=== PATIENT | female | born 1995 | race African-American/Black ===

== ENCOUNTER 2017-03-03 16:25 | Emergency (ER) | payer OTHER ==
[~2017-03-03] VITALS: Ht 152.4 cm; Wt 65.2 kg
[2017-03-03 16:32] VITALS: TEMP 36.7; Ht 152.4 cm; Wt 65.2 kg
[2017-03-03 18:38] LABS: BASO % 0.3 %; BASO ABS # 0.03 K/uL (0-0.2); EOS % 2.1 %; HEMATOCRIT 31.4 % (37-47); IG% 0.2 %; LYMPH % 19.3 %; LYMPH ABS # 1.78 K/uL (1.2-3.4); MEAN CELL VOLUME 74.8 fL (80-100); MEAN CORPUSCULAR HEMOGLOBIN 24.5 pg (25-34); MEAN CORPUSCULAR HGB CONC 32.8 g/dl (32-36); MEAN PLATELET VOLUME 10.4 fL (7.4-10.4); MONO % 10.2 %; NEUT % 67.9 %; PLATELET COUNT 303 K/uL (130-400); WHITE BLOOD COUNT 9.24 K/uL (4.8-10.8)
[2017-03-03 18:55] LABS: URINE APPEARANCE CLEAR (CLEAR); URINE BILIRUBIN NEG (NEG); URINE COLOR YELLOW; URINE EPITHELIAL CELL AUTO >30 /lpf (0-5); URINE NITRITE NEG (NEG); URINE SPECIFIC GRAVITY 1.019 (1.000-1.030); UROBILINOGEN NEG (NEG)
[2017-03-03 18:56] LABS: MANUAL MICROSCOPIC REQUIRED? NO; REVIEW REQ? NO
[2017-03-03 18:58] LABS: ALT/SGPT 17 U/L (12-78); AST/SGOT 14 U/L (15-37); BLOOD UREA NITROGEN 9 mg/dl (7-18); BUN/CREATININE RATIO 15.2 (10-20); CALCIUM 8.3 mg/dl (8.5-10.1); CARBON DIOXIDE 27 mmol/L (21-32); CHLORIDE 110 mmol/L (98-107); CREATININE 0.59 mg/dl (0.60-1.20); GLUCOSE 57 mg/dl (70-99); POTASSIUM 3.3 mmol/L (3.5-5.1); SODIUM 144 mmol/L (136-145)
[2017-03-03 19:00] LABS: ALKALINE PHOSPHATASE 54 U/L (45-117)
[2017-03-03 19:04] LABS: COMPLETE YES; MICROCYTOSIS PRESENT
--- NOTE | 2017-03-03 20:13 | DIAGNOSTIC IMAGING REPORT ---
ABDOMINAL ULTRASOUND, RIGHT UPPER QUADRANT HISTORY: Right upper quadrant tenderness. COMPARISON: None. FINDINGS: The liver is sonographically normal. There is no biliary ductal dilatation. The common bile duct measures 1 mm in caliber. There are no gallstones. There is no biliary ductal dilatation. Slight prominence of the pancreatic head is likely within normal limits. There is no right hydronephrosis. IMPRESSION: 1. No significant abnormality within the right upper quadrant by sonography. 2. Apparent prominence of the pancreatic head with no mass identified. This is likely within normal limits. Electronically signed by: Shane Howard M.D. 03/03/2017 8:11 PM Dictated Date/Time: 03/03/2017 8:10 PM
--- NOTE | 2017-03-03 20:53 | DIAGNOSTIC IMAGING REPORT ---
CT OF THE ABDOMEN AND PELVIS WITHOUT CONTRAST, STONE PROTOCOL CLINICAL HISTORY: Right-sided abdominal pain. COMPARISON STUDY: Right upper quadrant ultrasound March 03, 2017. TECHNIQUE: Helical axial images of the abdomen and pelvis were obtained without IV or oral contrast according to renal stone protocol. FINDINGS: There is mild right renal atrophy. 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 There is no hydronephrosis. No renal, ureteral or bladder calculi are identified. Evaluation of the remainder of the abdomen and pelvis is suboptimal on this unenhanced exam. The liver, spleen, adrenal glands and pancreas are unremarkable. No pancreatic mass is identified on this unenhanced exam. There is no evidence for a bowel obstruction. The appendix is not definitively identified. Evaluation is difficult given a paucity of intra-abdominal fat. Skeletal structures are unremarkable. IMPRESSION: 1. No urinary calculi or hydronephrosis. 2. 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 3. No pancreatic mass identified on this unenhanced exam. 4. Appendix not confidently identified but no right lower quadrant inflammation. Electronically signed by: Shane Howard M.D. 03/03/2017 8:52 PM Dictated Date/Time: 03/03/2017 8:45 PM
[2017-03-03] MEDS ORDERED: SULF800T23 PO (21:01)
[2017-03-03] MEDS ORDERED: SULFAMETHOXAZOLE/TRIMETHOPRIM DS 800/160MG TAB PO STA (21:02)
[2017-03-03 21:46] VITALS: BP 109/69; PULSE 72; O2SAT 98
--- NOTE | 2017-03-04 00:50 | EMERGENCY ROOM VISIT NOTE ---
History Report prepared by Tiffany: Tyron Lyles Under the Supervision of: Dr. Jamal Minor M.D. First contact with patient: 17:48 Chief Complaint: ABDOMINAL PAIN Stated Complaint: ABDOMINAL PAIN History of Present Illness The patient is a 21 year old female who presents to the Emergency Room with complaints of constant right-sided and upper abdominal pain beginning two weeks ago. She currently rates her discomfort a 7/10 in severity. The patient states that she has been feeling this pain for the past two weeks, but believed that it was cramps from her menstrual cycle. She reports that her menstrual period ended the other day, and her symptoms are still present. The patient notes that she has experienced nausea and diarrhea. She denies discomfort with eating, vomiting, chest pain, shortness of breath, fever, hematuria, dysuria, and melena. The patient reports that when she walks or moves for a long period of time, her symptoms worsen. She states the only time she does not feel her discomfort is when she lays down. The patient notes that her last menstrual period was a few days longer than normal and just ended. She reports that there is no chance she is , and the last time she was sexually active was about one and a half months ago. The patient states that she does not have a history of gallbladder problems. She states her stool is not pale or bloody. Source of History: patient Onset: two weeks ago Position: abdomen (right-sided and upper) Symptom Intensity: 7/10 Timing: constant Modifying Factors (Worsening): movement Modifying Factors (Relieving): other (laying down) Associated Symptoms: + nausea, + diarrhea, No fevers, No chest pain, No SOB , No vomiting, No melena, No urinary symptoms Review of Systems See HPI for pertinent positives & negatives. A total of 10 systems reviewed and were otherwise negative. Family History No significant family history Social History Smoking Status: Never Smoker Alcohol Use: occasionally Housing Status: lives alone Occupation Status: [employer] student Current/Historical Medications Scheduled Sulfa/Trimethoprim (Bactrim Ds 800MG/160MG), 1 TAB PO BID Allergies Coded Allergies: No Known Allergies (Unverified , 03/03/17) Physical Exam Vital Signs Date Time Temp Pulse Resp B/P (MAP) Pulse Ox O2 Delivery O2 Flow Rate FiO2 03/03/17 21:46 72 18 109/69 98 03/03/17 20:35 83 20 120/78 94 Room Air 03/03/17 18:35 81 16 106/70 100 Room Air 03/03/17 16:32 36.7 84 16 107/70 100 Room Air Physical Exam Constitutional: Vital signs reviewed. Eyes: Pupils are equal round reactive to light. Conjunctiva are noninjected. ENT: Pharynx is clear without erythema or exudate. Mucous membranes are moist. Neck supple without meningeal signs. Respiratory: Clear to auscultation bilaterally. Breath sounds are equal bilaterally. Cardiovascular: Regular rate and rhythm. No rubs or gallops. GI: Soft, nondistended and nontender. Bowel sounds are present. Abdomen: Soft, nondistended. Bowel sounds are present. Right upper quadrant tenderness. No Oliver's sign. Musculoskeletal: No peripheral edema. No lower extremity tenderness. No CVA tenderness. Integumentary: No cyanosis. Neurological: The patient is awake and alert. No focal deficits. Psychiatric: Normal affect. Medical Decision & Procedures ER Provider Diagnostic Interpretation: Radiology results as stated below per my review and the radiologist's interpretation: ABDOMINAL ULTRASOUND, RIGHT UPPER QUADRANT HISTORY: Right upper quadrant tenderness. COMPARISON: None. FINDINGS: The liver is sonographically normal. There is no biliary ductal dilatation. The common bile duct measures 1 mm in caliber. There are no gallstones. There is no biliary ductal dilatation. Slight prominence of the pancreatic head is likely within normal limits. There is no right hydronephrosis. IMPRESSION: 1. No significant abnormality within the right upper quadrant by sonography. 2. Apparent prominence of the pancreatic head with no mass identified. This is likely within normal limits. Electronically signed by: Shane Howard M.D. 03/03/2017 8:11 PM Dictated Date/Time: 03/03/2017 8:[address] OF THE ABDOMEN AND PELVIS WITHOUT CONTRAST, STONE PROTOCOL CLINICAL HISTORY: Right-sided abdominal pain. COMPARISON STUDY: Right upper quadrant ultrasound March 03, 2017. TECHNIQUE: Helical axial images of the abdomen and pelvis were obtained without IV or oral contrast according to renal stone protocol. FINDINGS: There is mild right renal atrophy. 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 There is no hydronephrosis. No renal, ureteral or bladder calculi are identified. Evaluation of the remainder of the abdomen and pelvis is suboptimal on this unenhanced exam. The liver, spleen, adrenal glands and pancreas are unremarkable. No pancreatic mass is identified on this unenhanced exam. There is no evidence for a bowel obstruction. The appendix is not definitively identified. Evaluation is difficult given a paucity of intra-abdominal fat. Skeletal structures are unremarkable. IMPRESSION: 1. No urinary calculi or hydronephrosis. 2. 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 3. No pancreatic mass identified on this unenhanced exam. 4. Appendix not confidently identified but no right lower quadrant inflammation. Electronically signed by: Shane Howard M.D. 03/03/2017 8:52 PM Dictated Date/Time: 03/03/2017 8:45 PM Laboratory Results 03/03/17 18:07 Red Blood Count 4.20, Mean Corpuscular Volume 74.8, Mean Corpuscular Hemoglobin 24.5, Mean Corpuscular Hemoglobin Concent 32.8, Mean Platelet Volume 10.4, Neutrophils (%) (Auto) 67.9, Lymphocytes (%) (Auto) 19.3, Monocytes (%) (Auto) 10.2, Eosinophils (%) (Auto) 2.1, Basophils (%) (Auto) 0.3, Neutrophils # (Auto ) 6.28, Lymphocytes # (Auto) 1.78, Monocytes # (Auto) 0.94, Eosinophils # (Auto ) 0.19, Basophils # (Auto) 0.03 03/03/17 18:07 Test 03/03/17 18:07 03/03/17 18:32 White Blood Count 9.24 K/uL (4.8-10.8) Red Blood Count 4.20 M/uL (4.2-5.4) Hemoglobin 10.3 g/dL (12.0-16.0) Hematocrit 31.4 % (37-47) Mean Corpuscular Volume 74.8 fL (80-100) Mean Corpuscular Hemoglobin 24.5 pg (25-34) Mean Corpuscular Hemoglobin Concent 32.8 g/dl (32-36) Platelet Count 303 K/uL (130-400) Mean Platelet Volume 10.4 fL (7.4-10.4) Neutrophils (%) (Auto) 67.9 % Lymphocytes (%) (Auto) 19.3 % Monocytes (%) (Auto) 10.2 % Eosinophils (%) (Auto) 2.1 % Basophils (%) (Auto) 0.3 % Neutrophils # (Auto) 6.28 K/uL (1.4-6.5) Lymphocytes # (Auto) 1.78 K/uL (1.2-3.4) Monocytes # (Auto) 0.94 K/uL (0.11-0.59) Eosinophils # (Auto) 0.19 K/uL (0-0.5) Basophils # (Auto) 0.03 K/uL (0-0.2) RDW Standard Deviation 40.5 fL (36.4-46.3) RDW Coefficient of Variation 14.9 % (11.5-14.5) Immature Granulocyte % (Auto) 0.2 % Immature Granulocyte # (Auto) 0.02 K/uL (0.00-0.02) Microcytosis PRESENT Anion Gap 7.0 mmol/L (3-11) Est Creatinine Clear Calc Drug Dose 128.2 ml/min Estimated GFR () > 150.0 Estimated GFR (Non- 131.9 BUN/Creatinine Ratio 15.2 (10-20) Calcium Level 8.3 mg/dl (8.5-10.1) Total Bilirubin 0.3 mg/dl (0.2-1) Direct Bilirubin < 0.1 mg/dl (0-0.2) Aspartate Amino Transf (AST/SGOT) 14 U/L (15-37) Alanine Aminotransferase (ALT/SGPT) 17 U/L (12-78) Alkaline Phosphatase 54 U/L (45-117) Total Protein 7.6 gm/dl (6.4-8.2) Albumin 3.4 gm/dl (3.4-5.0) Lipase 177 U/L (73-393) Urine Color YELLOW Urine Appearance CLEAR (CLEAR) Urine pH 7.0 (4.5-7.5) Urine Specific [place] 1.019 (1.000-1.030) Urine Protein NEG (NEG) Urine Glucose (UA) NEG (NEG) Urine Ketones NEG (NEG) Urine Occult Blood NEG (NEG) Urine Nitrite NEG (NEG) Urine Bilirubin NEG (NEG) Urine Urobilinogen NEG (NEG) Urine Leukocyte Esterase SMALL (NEG) Urine WBC (Auto) 5-10 /hpf (0-5) Urine RBC (Auto) 0-4 /hpf (0-4) Urine Hyaline Casts (Auto) 0 /lpf (0-5) Urine Epithelial Cells (Auto) >30 /lpf (0-5) Urine Bacteria (Auto) NEG (NEG) Urine Test NEG (NEG) Laboratory results as reviewed by me. Medications Administered Medications (Trade) Dose Ordered Sig/Ingrid Route Start Time Stop Time Status Last Admin Dose Admin Trimethoprim/ Sulfamethoxazole (Septra Ds 800/ 160MG Tab) 1 tab NOW STAT PO 03/03/17 21:02 03/03/17 21:03 DC 03/03/17 21:45 1 TAB ED Course 1751: The patient was evaluated in room B11A. A complete history and physical exam was performed. 2020: I reevaluated the patient and discussed her test results with her. She agreed to a CT of the abdomen and pelvis. 2056: Upon reevaluation, the patient appeared to have improvement of her symptoms. I discussed tonight's findings with her. I also discussed her urine symptoms, and she agrees to be treated with antibiotics. She verbalized agreement of the treatment plan. The patient will be discharged home when she receives her medication. 2101: Ordered Trimethoprim/Sulfamethoxazole 1 tab PO Medical Decision This is a 21-year-old female who presents with upper abdominal pain. Differential diagnosis includes cholelithiasis, cholecystitis, pancreatitis, peptic ulcer disease, gastritis, strain. I did perform a limited focused review of portions of the patient's old chart on the electronic medical record. The patient has had no recent pertinent visits to this hospital. Medication Reconciliation: I attest that I have personally reviewed the patient' s current medication list. Blood Pressure Screening: Patient was found to have normal blood pressure on screening and does not require follow-up. I did evaluate the patient as noted above. IV access was established. I did order and personally review the patient's urinalysis as described above. The findings were equivocal. I did order a urine culture. I did order and review the patient's blood work as noted in the electronic medical record. She has mild anemia and hypokalemia. I did order an ultrasound of the right upper quadrant. I did review the images myself as well as the radiology report as described above. There was some question of a pancreatic mass. I did order a CT of the abdomen and pelvis. This was negative for any acute process. I did discuss the test results with the patient in detail. She denies any urinary symptoms but requested to be placed on antibiotics because of her urinalysis results. The exact cause of her symptoms is unclear at this time. She was advised to follow closely with [facility] for further evaluation. She was given return instructions as outlined below. She was discharged with a prescription for Bactrim. Impression Primary Impression: Right upper quadrant abdominal pain Additional Impression: Anemia Scribe Attestation The scribe's documentation has been prepared under my direct and personally reviewed by me in its entirety. I confirm that the note above accurately reflects all work, treatment, procedures, and medical decision making performed by me. Departure Information Dispostion Home / Self-Care Prescriptions Sulfa/Trimethoprim (Bactrim Ds 800MG/160MG) Tab 1 TAB PO BID, #6 TAB Prov: Jamal Minor M.D. 03/03/17 Referrals [facility] Forms HOME CARE DOCUMENTATION FORM, IMPORTANT VISIT INFORMATION Patient Instructions ED Abdominal Pain Unkn Cause, ED Anemia Type Not Specified, My [facility] Additional Instructions You have been examined and treated today on an emergency basis only. This is not a substitute for, or an effort to provide, complete comprehensive medical care. It is impossible to recognize and treat all injuries or illnesses in a single emergency department visit. It is therefore important that you follow up closely with your physician. Call as soon as possible for an appointment. Return for worsening symptoms or if you develop fever, vomiting, black or bloody stools, chest pain, shortness of breath or any other concerning symptoms. Problem Qualifiers Additional Impression: Anemia Anemia type: unspecified type Qualified Codes: D64.9 - Anemia, unspecified
== END 2017-03-03 21:47 | disposition home or self-care (01) ==
LOC: C.EDB 16:27
DX: R10.11 Right upper quadrant pain (principal); D64.9 Anemia, unspecified

== ENCOUNTER → 2017-10-19 | Outpatient (CLI) | payer OTHER | END | disposition home or self-care (01) | LOC: C.LABSPEC 16:18 | PROVIDERS: ATTEND Obstetrics & Gynecology | DX: Z34.01 Encounter for supervision of normal first pregnancy, first trimester (principal) ==

== ENCOUNTER → 2017-10-25 | Outpatient (CLI) | payer OTHER ==
[2017-10-25 16:50] LABS: BASO % 0.1 %; BASO ABS # 0.01 K/uL (0-0.2); EOS ABS # 0.18 K/uL (0-0.5); HEMOGLOBIN 11.6 g/dL (12.0-16.0); IG# 0.02 K/uL (0.00-0.02); LYMPH ABS # 2.33 K/uL (1.2-3.4); MEAN CELL VOLUME 76.2 fL (80-100); MEAN CORPUSCULAR HGB CONC 34.1 g/dl (32-36); MONO % 6.2 %; MONO ABS # 0.56 K/uL (0.11-0.59); NEUT % 65.5 %; NEUT ABS # 5.87 K/uL (1.4-6.5); PLATELET COUNT 224 K/uL (130-400); RED CELL DISTRIBUTION WIDTH SD 39.4 fL (36.4-46.3); WHITE BLOOD COUNT 8.97 K/uL (4.8-10.8)
== END | disposition home or self-care (01) ==
LOC: C.LAB1850 15:59
PROVIDERS: ATTEND Obstetrics & Gynecology
DX: Z34.01 Encounter for supervision of normal first pregnancy, first trimester (principal); Z3A.00 Weeks of gestation of pregnancy not specified

== ENCOUNTER → 2017-10-25 | Outpatient (CLI) | payer OTHER | END | disposition home or self-care (01) | LOC: C.PAPS 08:33 | PROVIDERS: ATTEND Obstetrics & Gynecology | DX: Z34.01 Encounter for supervision of normal first pregnancy, first trimester (principal); Z3A.00 Weeks of gestation of pregnancy not specified ==

== ENCOUNTER → 2017-11-22 | Outpatient (CLI) | payer OTHER | END | disposition home or self-care (01) | LOC: C.LAB1850 11:48 | PROVIDERS: ATTEND Obstetrics & Gynecology | DX: Z34.03 Encounter for supervision of normal first pregnancy, third trimester (principal) ==

== ENCOUNTER → 2017-12-19 | Outpatient (CLI) | payer OTHER | END | disposition home or self-care (01) | LOC: C.LAB1850 12:32 | PROVIDERS: ATTEND Obstetrics & Gynecology | DX: Z34.02 Encounter for supervision of normal first pregnancy, second trimester (principal); Z13.0 Encounter for screening for diseases of the blood and blood-forming organs and certain disorders involving the immune mechanism ==